=== PATIENT | female | born 1965 | race African-American/Black ===

== ENCOUNTER 2017-04-18 16:18 | Emergency (ER) | payer OTHER ==
[~2017-04-18] VITALS: Ht 170.2 cm; Wt 106.6 kg
[2017-04-18] MEDS ORDERED: IV NORMAL SALINE 1000ML BAG 1,000 ML IV ONE (16:30)
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
[2017-04-18 16:45] LABS: BASO # 0.1 x10^3/uL (0.0-0.2); BASO % 1 % (0-3); BILIRUBIN,URINE NEGATIVE (NEG); EOS % 3 % (0-3); GLUCOSE,URINE NEGATIVE (NEG); HEMATOCRIT 38.5 % (36.0-47.0); HEMOGLOBIN 12.9 g/dL (12.0-15.5); LYMPH # 1.9 x10^3/uL (1.0-4.8); LYMPH % 23 % (24-48); MEAN CORPUSCULAR HEMOGLOBIN 28 pg (25-35); MEAN CORPUSCULAR HGB CONC 34 g/dL (31-37); MEAN CORPUSCULAR VOLUME 84 fL (79-100); MONO % 5 % (0-9); NEUT % 68 % (31-73); NITRITE,URINE NEGATIVE (NEG); PLATELET COUNT 338 x10^3/uL (140-400); PROTEIN,URINE NEGATIVE (NEG-TRACE); RED BLOOD COUNT 4.57 x10^6/uL (3.50-5.40); RED CELL DISTRIBUTION WIDTH 14.8 % (11.5-14.5); UROBILINOGEN,URINE 0.2 mg/dL (0.2 mg/dL); WHITE BLOOD COUNT 8.6 x10^3/uL (4.0-11.0)
[2017-04-18 17:02] LABS: WBC,URINE 0 /HPF (0-4)
[2017-04-18 17:03] LABS: BACTERIA,URINE 0 /HPF (0-FEW); SQUAMOUS EPITHELIAL CELL,UR FEW /LPF
[2017-04-18 17:04] LABS: ANION GAP 11 (6-14); BLOOD UREA NITROGEN 17 mg/dL (7-20); BUN/CREATININE RATIO 13 (6-20); CALCIUM 9.3 mg/dL (8.5-10.1); CARBON DIOXIDE 25 mmol/L (21-32); CHLORIDE 102 mmol/L (98-107); CREATININE 1.3 mg/dL (0.6-1.0); GLUCOSE 106 mg/dL (70-99); POTASSIUM 3.6 mmol/L (3.5-5.1); SODIUM 138 mmol/L (136-145)
[2017-04-18 17:11] LABS: ALBUMIN 3.8 g/dL (3.4-5.0); ALK PHOS 80 U/L (46-116); ALT (SGPT) 28 U/L (14-59); AST (SGOT) 21 U/L (15-37); DIRECT BILIRUBIN < 0.1 mg/dL (0.0-0.2); TOTAL BILIRUBIN 0.2 mg/dL (0.2-1.0); TOTAL PROTEIN 7.5 g/dL (6.4-8.2)
[2017-04-18 17:19] LABS: CKMB MASS 2.3 ng/mL (0.0-3.6)
[2017-04-18 17:50] VITALS: BP 138/78
--- NOTE | 2017-04-19 13:20 | EKG ---
[facility] [address] [place] [id number] Test Date: 2017-04-18 Test Time: 16:23:33 Pat Name: CHELSIE SEBASTIAN Department: Room: Gender: F Staffing Assistant: : [id number] Requested By: DEISY FISHER Order Number: [id number] Reading MD: Tyrone Longo Measurements Intervals [place] Rate: 75 P: 59 ID: [id number] QRS: 50 QRSD: 88 T: 9 QT: 350 QTc: 393 Interpretive Statements SINUS RHYTHM Electronically Signed On 04-23-2017 14:39:27 CDT by Tyrone Longo
== END 2017-04-18 18:10 | disposition home or self-care (01) ==
LOC: ER 16:18
DX: T67.5XXA Heat exhaustion, unspecified, initial encounter (principal); R55 Syncope and collapse; E03.9 Hypothyroidism, unspecified; Z90.49 Acquired absence of other specified parts of digestive tract; Z90.710 Acquired absence of both cervix and uterus; Z96.669 Presence of unspecified artificial ankle joint; Z88.5 Allergy status to narcotic agent; X30.XXXA Exposure to excessive natural heat, initial encounter; Y93.89 Activity, other specified; Y92.89 Other specified places as the place of occurrence of the external cause; Y99.8 Other external cause status
CPT/HCPCS: 36415; 80053; 80076; 81001; 82553; 85027; 93005; 96360; 99285; J7030